=== PATIENT | female | born 1985 | race Caucasian/White ===

== ENCOUNTER 2023-04-02 17:44 | Emergency (ER) | payer SELFPAY ==
[2023-04-02 17:47] VITALS: BP 139/91; PULSE 106; RESP 16; TEMP 37.7; O2SAT 97; BMI 46.7
--- NOTE | 2023-04-02 18:21 | XRR_ITS ---
PROCEDURE INFORMATION: Exam: XR Chest Exam date and time: 04/02/2023 8:46 PM Age: 37 years old Clinical indication: Fever; Additional info: Fever body aches TECHNIQUE: Imaging protocol: Radiologic exam of the chest. Views: 1 view. COMPARISON: CR XR chest 1V [id number] 11/05/2018 10:46 PM FINDINGS: Lungs: Unremarkable. No consolidation. Pleural spaces: Unremarkable. No pleural effusion. No pneumothorax. Heart/Mediastinum: Unremarkable. No cardiomegaly. Bones/joints: Unremarkable. Soft tissues: Examination is limited secondary to body habitus. Organs: Surgical clips in the gallbladder fossa consistent with cholecystectomy. XR/XR chest 1V portable [id number] IMPRESSION: No acute findings.
[2023-04-02 18:46] LABS: Basophils % 0.5 %; Eosinophils % 0.4 %; Hematocrit 43.1 % (36-47); Lymphocytes # 0.8 10^3/uL (0.8-4.8); Lymphocytes % 13.7 %; Mean Corpuscular HGB Conc 32.3 g/dL (30-55); Mean Corpuscular Hemoglobin 27.3 pg (27-33); Mean Corpuscular Volume 84.5 fl (85-98); Mean Platelet Volume 11.2 fL (7.4-10.4); Monocytes # 1.1 10^3/uL (0.2-0.9); Monocytes % 18.8 %; Neutrophils # 3.76 10^3/uL (1.8-7.7); Neutrophils % 66.2 %; Nucleated Red Blood Cells % 0 %; Platelet Count 217 10^3/cmm (157-399); Red Cell Distribution Width 13.5 % (12.1-15.1); White Blood Count 5.68 10^3/uL (3.29-11.43)
[2023-04-02 19:15] LABS: Alanine Aminotransferase 11 U/L (0-33); Albumin Level 3.9 g/dL (3.5-5.2); Alkaline Phosphatase 83 U/L (35-105); Anion Gap 13.1 (5-19); Aspartate Amino Transferase 16 U/L (0-32); Blood Urea Nitrogen 7 mg/dL (6-20); Calcium 8.7 mg/dL (8.5-10.5); Carbon Dioxide 26 mmol/L (22-29); Chloride 103 mmol/L (98-107); Globulin 3.4 g/dL (1.3-4.6); Glomerular Filtration Rate 112.5 mL/min (90-130); Glucose 89 mg/dL (65-115); Osmolality Calculated 283 mOsm/kg (285-295); Potassium 4.1 mmol/L (3.5-5.1); Sodium 138 mmol/L (136-145); Total Bilirubin 0.3 mg/dL (0.15-1.2); Total Protein 7.3 g/dL (6.6-8.7)
[2023-04-02 20:33] VITALS: BP 141/95; PULSE 98; RESP 18; TEMP 36.9; O2SAT 98
[2023-04-02 20:56] LABS: Influenza A by IFA negative (Negative); Influenza B by IFA negative (Negative)
--- NOTE | 2023-04-02 20:57 | W.ED.FEVER ---
HPI - Fever General: Chief Complaint: Fever Stated Complaint: headache, sob , fever Time Seen by Provider: 04/02/23 20:25 Source: patient Mode of arrival: ambulatory Limitations: no limitations History of Present Illness: Patient presents to the emergency department today accompanied by for evaluation and treatment of sudden onset body aches, upset stomach, fever, and headache. Patient seemed to mention some upper respiratory symptoms at discharge but, does not indicate upper respiratory concerns during her physical examination. Patient states she has 1 functioning kidney. She reports that about once a year she gets symptoms like this and is due to urinary tract infection. Patient took Tylenol at approximately 10:00 this morning. Nothing recently. Review of Systems General: Reports: 10 or more systems reviewed and unremarkable except in HPI and below COUNTS INCLUDE 234 BEDS AT THE [facility] ED Female Reproductive History: Date of last menstrual period: 03/12/23 Physical Exam Const: COMMON NORMALS: no acute distress, patient oriented x3 and alert Eye: COMMON NORMALS: Equal, round and reactive pupils present, EOMs intact bilaterally and conjunctivae normal CONJUNCTIVA: Yes conjunctivae normal PUPIL: Yes Equal, round and reactive pupils present Neck/C-Spine: COMMON NORMALS: no JVD Lymph: LYMPHATIC: no lymphadenopathy noted Resp: COMMON NORMALS: normal respiratory effort, No retractions and No use of accessory muscles Cardio: COMMON NORMALS: no JVD and regular rate RATE: regular rate GI: OTHER: Normoactive bowel sounds. Abdomen is soft. Nontender to palpation. : COMMON NORMALS: Yes no CVA tenderness BLADDER/KIDNEY EXAM: Yes no CVA tenderness Back/Pelvis: COMMON NORMALS: no CVA tenderness, thoracic and lumbar spine normal to inspection and thoraco-lumbar ROM normal Extremity: COMMON NORMALS: normal to inspection, full ROM and no pedal edema Neuro: COMMON NORMALS: patient oriented x3 SENSORIUM/ORIENTATION: Yes alert Skin: COMMON NORMALS: no rashes or lesions noted and turgor normal GENERAL SKIN EXAM: no rashes or lesions noted and turgor normal Course Vital Signs: Vital signs: Vital Signs Temperature 98.5 F 04/02/23 20:33 Pulse Rate 90 04/02/23 23:42 Respiratory Rate 18 04/02/23 23:42 Blood Pressure 129/74 04/02/23 23:42 Pulse Oximetry 93 04/02/23 23:42 Oxygen Delivery Me thod Room Air 04/02/23 23:37 MDM - Fever Medical Decision Making Patient's urinalysis revealed no acute concerns today. However, she did test positive for COVID. Given that patient has 1 kidney and has the risk of progressing towards more significant illness, I did put her through the Paxlovid criteria for which she did qualify. I discussed with the patient treatment for her COVID with Paxlovid and she did wish to proceed on with the prescription. We discussed staying hydrated. Explained to her that symptoms may remain for several more days including continued fevers, headache, body aches. She can use [id number] symptomatic treatments. Informational handout regarding active COVID illness provided for her at home. Patient was given strict return precautions for signs of secondary infection or concerns for kidney injury/dehydration. Patient verbalized understanding and agreement to the treatment plan. Differential Diagnosis Likely gastroenteritis; Unlikely acute appendicitis (Influenza, COVID, UTI, pyelonephritis, urosepsis) Lab Data 04/02/23 18:32 04/02/23 18:32 Radiology Impressions Chest X-Ray 04/02/23 18:21 IMPRESSION: No acute findings. Laboratory Results WBC 5.68 10^3/uL (3.29-11.43) 04/02/23 18:32 RBC 5.10 10^6/uL (3.85-5.65) 04/02/23 18:32 Hgb 13.90 g/dL (11.27-16.99) 04/02/23 18:32 Hct 43.1 % (36-47) 04/02/23 18:32 MCV 84.5 fl (85-98) L 04/02/23 18:32 MCH 27.3 pg (27-33) 04/02/23 18:32 MCHC 32.3 g/dL (30-55) 04/02/23 18:32 RDW 13.5 % (12.1-15.1) 04/02/23 18:32 Plt Count 217 10^3/cmm (157-399) 04/02/23 18:32 MPV 11.2 fL (7.4-10.4) H 04/02/23 18:32 Neut % (Auto) 66.2 % 04/02/23 18:32 Lymph % (Auto) 13.7 % 04/02/23 18:32 [place] % (Auto) 18.8 % 04/02/23 18:32 Eos % (Auto) 0.4 % 04/02/23 18:32 Baso % (Auto) 0.5 % 04/02/23 18:32 Neut # (Auto) 3.76 10^3/uL (1.8-7.7) 04/02/23 18:32 Lymph # (Auto) 0.8 10^3/uL (0.8-4.8) 04/02/23 18:32 [place] # (Auto) 1.1 10^3/uL (0.2-0.9) H 04/02/23 18:32 Eos # (Auto) 0.0 10^3/uL (0.0-0.8) 04/02/23 18:32 Baso # (Auto) 0.0 10^3/uL (0.0-0.1) 04/02/23 18:32 Nucleated RBC % (auto) 0 % 04/02/23 18:32 Nucleated RBCs # 0.0 /100WBC 04/02/23 18:32 Sodium 138 mmol/L (136-145) 04/02/23 18:32 Potassium 4.1 mmol/L (3.5-5.1) 04/02/23 18:32 Chloride 103 mmol/L (98-107) 04/02/23 18:32 Carbon Dioxide 26 mmol/L (22-29) 04/02/23 18:32 Anion Gap 13.1 (5-19) 04/02/23 18:32 BUN 7 mg/dL (6-20) 04/02/23 18:32 Creatinine 0.6 mg/dL (0.5-0.9) 04/02/23 18:32 GFR Calculation 112.5 mL/min (90-130) 04/02/23 18:32 Glucose 89 mg/dL (65-115) 04/02/23 18:32 Calculated Osmolality 283 mOsm/kg (285-295) L 04/02/23 18:32 Calcium 8.7 mg/dL (8.5-10.5) 04/02/23 18:32 Total Bilirubin 0.3 mg/dL (0.15-1.2) 04/02/23 18:32 AST 16 U/L (0-32) 04/02/23 18:32 ALT 11 U/L (0-33) 04/02/23 18:32 Alkaline Phosphatase 83 U/L (35-105) 04/02/23 18:32 Total Protein 7.3 g/dL (6.6-8.7) 04/02/23 18:32 Albumin 3.9 g/dL (3.5-5.2) 04/02/23 18:32 Globulin 3.4 g/dL (1.3-4.6) 04/02/23 18:32 HCG, Qual Negative (Negative) 04/02/23 22:49 Urine Color Yellow (Yellow) 04/02/23 22:49 Urine Appearance Clear (CLEAR) 04/02/23 22:49 Urine pH 5 (5-7) 04/02/23 22:49 Ur Specific [place] 1.025 (1.005-1.030) 04/02/23 22:49 Urine Protein Trace (Negative) 04/02/23 22:49 Urine Glucose (UA) Norm (Normal) 04/02/23 22:49 Urine Ketones 2+ (Negative) H 04/02/23 22:49 Urine Blood Neg (Negative) 04/02/23 22:49 Urine Nitrate Negative (Negative) 04/02/23 22:49 Urine Bilirubin Neg (Negative) 04/02/23 22:49 Urine Urobilinogen 1 mg/dL (Negative) H 04/02/23 22:49 Ur Leukocyte Esterase Trace (Negative) H 04/02/23 22:49 Urine RBC 0-4 /hpf (0-2) H 04/02/23 22:49 Urine WBC 0-4 /hpf (0-5) H 04/02/23 22:49 Ur Squamous Epith Cells 10-15 /hpf (0-5) H 04/02/23 22:49 Amorphous Sediment Not Reportable 04/02/23 22:49 Urine Bacteria Trace /hpf (NONE) 04/02/23 22:49 Urine Mucus 2+ /hpf 04/02/23 22:49 Influenza Type A Ag negative (Negative) 04/02/23 20:20 Influenza Type B Ag negative (Negative) 04/02/23 20:20 SARS-CoV-2 Ag (Rapid) positive (Negative) 04/02/23 20:20 Discharge Plan Discharge Patient Disposition: Home Clinical Impression: COVID-19 Condition: Stable Prescriptions: New Paxlovid (EUA) 300 mg (150 mg x 2)-100 mg tablets,dose pack See Rx Instructions .ROUTE .COMPLEX Qty: 30 0RF Rx Instructions: orally per package directions Discharge Orders: Discharge ED (Routine); Ordered 04/02/23 Ordered By: Elizabeth Gates Referrals: [facility] [Other] Discharge Diet: Usual diet Discharge Activity: Increase activity as tolerated Patient Instructions: COVID-19 (Coronavirus Disease 2019) (ED), How to Recover from COVID-19 at Home (ED) Activity Restrictions/Additional Instructions: Lab work is generally unremarkable. Urinalysis reveals no acute concerns for infection at this time. Your influenza swab was negative however, he did test positive for COVID. We are seeing an influx of COVID cases in the region over the last couple of weeks. You do qualify for use of Paxil bid-the antiviral medication for COVID. I have written you a prescription. However, even with antiviral use, you will still experience symptoms of body aches, headache, nausea, nasal congestion, cough, and sore throat. Fevers can last anywhere from 5 to 7 days and, may never fully resolve during the illness. Typically, we expect to see general improvement of fever with use of antipyretic medication but, full resolution may not be achieved until end of illness. Will be very important and stable hydrated and rest. Avoid direct contact with others in close settings for the next 5 days. You can still use [id number] cough and cold medication as needed. If you develop concerns for dehydration due to vomiting, diarrhea, or experience fevers that are not not responding at all to any type of antipyretic medication or, should you have any signs of new onset respiratory distress you should be seen and reevaluated. Coding Level of Care Code ED Saw Operator for Yolie Stuart
[2023-04-02] MEDS: ondansetron 2 mg/ML SDV 2 mL 4 MG IVP (21:32)
[2023-04-02] MEDS: orphenadrine 30 mg/mL Inj 2 mL 60 MG IVP (21:32)
[2023-04-02] MEDS: sodium chloride 0.9% 1,000 ML 999 ML IV (21:56)
[2023-04-02 23:16] LABS: HCG Qualitative Urine. Negative (Negative)
[2023-04-02 23:22] LABS: Add Urine Culture? No; Add Urine Microscopic? YES; Bacteria Urine TRACE /hpf; Bilirubin Urine Neg (Negative); Blood Urine Neg (Negative); Glucose Urine UA Norm (Normal); Ketones Urine 2+ (Negative); Leukocyte Esterase Urine Trace (Negative); Mucus Urine 2+ /hpf; Nitrate Urine Negative (Negative); Protein Urine Trace (Negative); RBC Urine 0-4 /hpf (0-2); Specific Gravity, Urine 1.025 (1.005-1.030); Urine Appearance Clear (CLEAR); Urine Color Yellow (Yellow); Urobilinogen Urine 1 mg/dL (Negative); WBC Urine 0-4 /hpf (0-5); pH Urine 5 (5-7)
[2023-04-02 23:37] VITALS: BP 129/74; PULSE 94; RESP 18; O2SAT 93
[2023-04-02 23:42] VITALS: BP 129/74; PULSE 90; RESP 18; O2SAT 93
[2023-04-03 12:49] LABS: SARS Covid-2 Antigen positive (Negative)
== END 2023-04-02 23:46 | disposition home or self-care (01) ==
PROVIDERS: Emergency Medicine; Emergency Provider Physician Assistant
DX: U07.1 COVID-19 (principal)
CPT/HCPCS: 36415; 71045; 80053; 81001; 81025; 85025; 87426; 87804; 96361; 96374; 96375; 99284; J2360; J2405; J7030

== ENCOUNTER → 2023-04-06 09:24 | Outpatient (BNVA) | payer OTHER, SELFPAY | PROVIDERS: Visit Provider Podiatrist Foot & Ankle Surgery | DX: M79.671 Pain in right foot (principal); M72.2 Plantar fascial fibromatosis | CPT/HCPCS: 73630 ==

== ENCOUNTER 2023-04-06 15:13 | Outpatient (CLI) | payer OTHER, SELFPAY | END 2023-04-06 15:14 | disposition home or self-care (01) | LOC: SPT 15:14 | PROVIDERS: Visit Provider Podiatrist Foot & Ankle Surgery | DX: Z46.89 Encounter for fitting and adjustment of other specified devices (principal); M72.2 Plantar fascial fibromatosis | CPT/HCPCS: 97760; L4397 ==

== ENCOUNTER → 2023-08-23 09:00 | Outpatient (BNVA) | payer OTHER, SELFPAY | PROVIDERS: Visit Provider Obstetrics & Gynecology | DX: Z01.419 Encounter for gynecological examination (general) (routine) without abnormal findings (principal); Z00.00 Encounter for general adult medical examination without abnormal findings | CPT/HCPCS: 80053; 84443; 85025; 87624 ==

== ENCOUNTER → 2023-09-07 09:44 | Outpatient (BNVA) | payer OTHER, SELFPAY | PROVIDERS: Visit Provider Obstetrics & Gynecology | DX: N93.9 Abnormal uterine and vaginal bleeding, unspecified (principal); D25.9 Leiomyoma of uterus, unspecified; N83.201 Unspecified ovarian cyst, right side | CPT/HCPCS: 76830 ==

== ENCOUNTER 2023-11-09 09:15 | Outpatient (CLI) | payer OTHER, SELFPAY | END 2023-11-09 09:16 | disposition home or self-care (01) | LOC: SPT 09:16 | PROVIDERS: Visit Provider Podiatrist Foot & Ankle Surgery | DX: Z46.89 Encounter for fitting and adjustment of other specified devices (principal); M79.671 Pain in right foot | CPT/HCPCS: 97760; L4361 ==

== ENCOUNTER 2023-12-22 08:06 | Day surgery (SDC) | payer MEDICAID, SELFPAY ==
[2023-12-22] VITALS (9 sets, daily range): BP systolic 117–145; BP diastolic 73–93; PULSE 77–89; RESP 14–22; TEMP 36.1–36.4; O2SAT 94–100; BMI 46.7
--- NOTE | 2023-12-22 01:35 | W.PM.OPSFHP ---
Same Day Surgery H&P Indication for Procedure/HPI DATE OF PROCEDURE: December 22, 2023 CHIEF COMPLAINT/INDICATIONFOR SURGICAL PROCEDURE: abnormal uterine bleeding PREOP DIAGNOSIS: abnormal uterine bleeding PLANNED PROCEDURE: Operation Date: 12/22/23 10:10 Proposed Procedures p Hysteroscopy Hysteroscopy w/ Endometrial Sampling 71777, N93.9(Not Applicable) - Marlo Saleem MD s Poylpectomy/ possible endometrial polypectomy(Not Applicable) - Marlo Saleem MD 38 y.o. with irregular, heavy, and prolonged periods now scheduled for hysteroscopy, endometrial sampling, possible endometrial polypectomy Medications/Allergies* Home Medications Medication Instructions Recorded Confirmed Type No Known Home Medications 12/21/23 12/21/23 History Allergies/Adverse Reactions Allergy/AdvReac Type Severity Reaction Status Date / Time acetaminophen [From Vicodin] Allergy hives Verified 11/09/23 08:30 aspirin Allergy hives Verified 11/09/23 08:30 ceftriaxone [From Rocephin] Allergy hives Verified 11/09/23 08:30 erythromycin base Allergy hives Verified 11/09/23 08:30 hydrocodone [From Vicodin] Allergy hives Verified 11/09/23 08:30 Penicillins Allergy hives Verified 11/09/23 08:30 Pertinent History/Comorbid Conditions* Family History (Updated 08/23/23 @ 07:54 by Laurie Marion LPN) Denies family history of Colon cancer Ovarian cancer Diabetes Heart disease Hypercholesteremia Breast cancer Hypertension Uterine cancer Stroke Pertinent Exam Findings alert, oriented x 3, clear to auscultation bilaterally and regular rate & rhythm Pertinent Data Pap 08-23-23 NILM, negative HPV Pelvic sono 09-07-23 2.7 cm fibroid Normal uterus, ovaries Recommendations Surgery/Procedure today Coding Level of Care Code Acute Code for Chg Fwd Time Spent (min) 20
--- NOTE | 2023-12-22 09:05 | ANES.PREANE2 ---
Pre-Anesthetic Assessment Height/Weight: Height 1.63 m Weight 123.377 kg Temp Pulse Resp BP Pulse Ox O2 Del Method 97.5 F L 77 18 140/81 98 Room Air 12/22/23 08:44 12/22/23 08:44 12/22/23 08:44 12/22/23 08:44 12/22/23 08:44 12/22/23 08:45 Preop Diagnosis: abnormal uterine bleeding Operation Date: 12/22/23 10:10 Proposed Procedures p Hysteroscopy Hysteroscopy w/ Endometrial Sampling 67820, N93.9(Not Applicable) - Marlo Saleem MD s Poylpectomy/ possible endometrial polypectomy(Not Applicable) - Marlo Saleem MD Familial anesthetic complications: none Was Beta Lesly taken within 24 hours: N/A Was Clonidine taken within 24 hours: N/A Last intake: Intake Last Liquid Date 12/21/23 Last Liquid Time 23:55 Last Solid Date 12/21/23 Last Solid Time 21:30 Social No alcohol and No tobacco Exam alert, oriented x 3, clear to auscultation bilaterally and regular rate & rhythm Airway Submandibular: within normal limits Cervical ROM: within normal limits Mallampati: Class II Dentition: full CV/HEM Anemia Metabolic Morbid Obesity Anesthetic Plan ASA status: 2 Anesthesia: General Medications/Allergies Home Medications Medication Instructions Recorded Confirmed Last Taken Type No Known Home Medications 12/21/23 12/21/23 Unknown History Allergies Allergy/AdvReac Type Severity Reaction Status Date / Time acetaminophen [From Vicodin] Allergy hives Verified 11/09/23 08:30 aspirin Allergy hives Verified 11/09/23 08:30 ceftriaxone [From Rocephin] Allergy hives Verified 11/09/23 08:30 erythromycin base Allergy hives Verified 11/09/23 08:30 hydrocodone [From Vicodin] Allergy hives Verified 11/09/23 08:30 Penicillins Allergy hives Verified 11/09/23 08:30 PFSH Anesthesia Family History Denies family history of Colon cancer Ovarian cancer Diabetes Heart disease Hypercholesteremia Breast cancer Hypertension Uterine cancer Stroke Female Reproductive History Date of last menstrual period: 12/16/23 Data Anesthesia Cardiac Studies: No Data to Display
--- NOTE | 2023-12-22 09:43 | W.PM.OPSUD ---
Surgery/Procedure H&P Update DATE OF PROCEDURE: December 22, 2023 DATE H&P PERFORMED: 12/22/23 H&P UPDATE INFORMATION: I have reviewed H&P completed within last 30 days, I have examined patient prior to procedure and No changes to prior documentation PREOP DIAGNOSIS: abnormal uterine bleeding PLANNED PROCEDURE: Operation Date: 12/22/23 10:10 Proposed Procedures p Hysteroscopy Hysteroscopy w/ Endometrial Sampling 91710, N93.9(Not Applicable) - Marlo Saleem MD s Poylpectomy/ possible endometrial polypectomy(Not Applicable) - Marlo Saleem MD
[2023-12-22] MEDS: sodium chloride 0.9% 1,000 ML 100 ML IV (09:50)
--- NOTE | 2023-12-22 11:05 | PM.OP ---
Operative Report Date of procedure: December 22, 2023 Pre-op diagnosis: abnormal uterine bleeding Post-op diagnosis: same Post-op findings: normal endometrial cavity No polyps / fibroids Minimal endometrial tissue Procedure done: hysteroscopy Curettage of uterus Implants: none Specimens removed/disposition: endometrial curettings Surgeon: Marlo Saleem MD Anesthesia: MAC Estimated blood loss (mL): 0 Complications: none Condition: stable Disposition: PACU Brief History: 38 y.o. with abnormal uterine bleeding Procedure: Informed consent signed. Patient was taken to the operating room. Anesthesia was induced. Patient was placed in dorsolithotomy position, prepped and draped for hysteroscopy. A bivalve speculum was placed in the vagina. The anterior lip of the cervix was grasped with a sharp-toothed tenaculum. The cervix was serially dilated with Hegar dilators. . A hysteroscope was placed into the endometrial cavity. The endometrial cavity was seen to be normal. There were no polyps or fibroids. There was a minimal amount of endometrial tissue. The hysteroscope was then removed. Endometrial curettage was done with a sharp curette. Endometrial tissue was sent to pathology. The sharp-toothed tenaculum was removed. There was no bleeding from the endometrial cavity or cervix. The patient was then placed supine and awakened and taken to the PACU. Postop condition: stable EBL: none Sponge and instruments counts were normal x 2 Complications: none
[2023-12-22 11:14] LABS: OR HCG Qualitative Urine Negative (Negative)
--- NOTE | 2023-12-22 13:55 | ANE.PACU2 ---
Inpatient post-anesthesia follow up: Airway intact: Yes Vital signs: Temperature 97.6 F Pulse Rate 89 Respiratory Rate 16 Blood Pressure 120/79 Pulse Oximetry 95 Oxygen Delivery Me thod Room Air Oxygen Flow Rate 4 Fraction of Inspir ed Oxygen Hydration adequate: Yes Nausea and vomiting: No Pain level: 2 Mental status: Baseline
== END 2023-12-22 12:15 | disposition home or self-care (01) ==
PROVIDERS: Visit Provider Obstetrics & Gynecology
PROC: 0UJD8ZZ Inspection of Uterus and Cervix, Via Natural or Artificial Opening Endoscopic (ICD-10-PCS; CPT 58555; principal; 2023-12-22 10:00)
PROC: (CPT 58558; 2023-12-22 10:00)
DX: N93.9 Abnormal uterine and vaginal bleeding, unspecified (principal)
CPT/HCPCS: 58558; 81025; 88305; J1100; J1200; J2250; J2405; J2704; J3010; J7030

== ENCOUNTER 2024-01-13 06:59 | Emergency (ER) | payer MEDICAID, SELFPAY ==
[2024-01-13 07:08] VITALS: BP 144/89; PULSE 87; RESP 16; TEMP 36.9; O2SAT 97
--- NOTE | 2024-01-13 07:14 | ED_ITS ---
HPI - General Adult General: Chief complaint: Ear Stated complaint: left ear pain Time Seen by Provider: 01/13/24 07:08 Source: patient Mode of arrival: ambulatory History of Present Illness: 38-year-old female presents emergency ro om planing of sore throat with pain radiating into her ear. She has not had any fever sweats or chills no rash symptoms began overnight. Denies dysuria urgency or shortness of breath. No trauma or injury. Onset (ago): minute(s) Pain Consistency: constant Relieving factors: none Exacerbating factors: none Associated symptoms: Deny chest pain, confusion, cough, diaphoresis, decreased appetite, dyspnea, fevers/chills, headache(s), malaise, nausea, rash, palpitations, seizures, short of breath, syncope, vomiting or weakness Review of Systems Const: Reports: fever(s); Denies: chills, fatigue, malaise or diaphoresis ENMT: Reports: throat pain and ear or mastoid pain; Denies: ear discharge, nasal discharge or nasal congestion Card: Denies: chest pain, palpitations or syncope Resp: Denies: dyspnea GI: Denies: abdominal pain, nausea or vomiting : Denies: dysuria, urinary frequency or urinary urgency Musc: Denies: neck pain or back pain Skin/Breast: Denies: rash Neuro: Denies: headache(s) or confusion PFSH ED PFSH: Family History Denies family history of Colon cancer Ovarian cancer Diabetes Heart disease Hypercholesteremia Breast cancer Hypertension Uterine cancer Stroke Physical Exam Const: GENERAL APPEARANCE: cooperative and comfortable ORIENTATION/CONSCIOUSNESS: Yes awake, Yes oriented to person, Yes oriented to place and Yes oriented to time HENMT: COMMON NORMALS: normocephalic, atraumatic and hearing grossly normal bilaterally HEAD & SCALP: normocephalic and atraumatic THROAT: posterior oropharynx abnormal edema, erythema and exudates OTHER: No gum inflammation or redness no swelling or apparent abscesses. Bilaterally there is excessive cerumen within the external auditory canal the external auditory canal itself does not show any evidence of redness or erythema or drainage only small portions of the TM can be visualized they appear to be normal Neck/C-Spine: OTHER: Tender submandibular lymphadenopathy Resp: COMMON NORMALS: normal respiratory effort, No retractions, No use of accessory muscles and clear to auscultation bilaterally AUSCULTATION: clear to auscultation bilaterally Cardio: COMMON NORMALS: regular rate, regular rhythm and No murmurs present (Cardio) RATE: regular rate RHYTHM: regular rhythm GI: COMMON NORMALS: Soft to palpation and No hepatosplenomegaly present AUSCULTATION: Yes normoactive bowel sounds PALPATION: Yes Soft to palpation, No Tenderness to palpation present (GI), No Guarding due to palpation present (G I) and Yes No hepatosplenomegaly present Extremity: COMMON NORMALS: normal to inspection, capillary refill normal, no clubbing, cyanosis or edema, no calf tenderness and no pedal edema Neuro: SENSORIUM/ORIENTATION: Yes oriented to person, Yes oriented to place and Yes oriented to time Skin: COMMON NORMALS: no rashes or lesions noted GENERAL SKIN EXAM: no rashes or lesions noted Course Vital Signs: Vital signs: Vital Signs Temperature 98.5 F 01/13/24 07:08 Pulse Rate 87 01/13/24 07:24 Respiratory Rate 16 01/13/24 07:24 Blood Pressure 144/89 01/13/24 07:24 Pulse Oximetry 98 01/13/24 07:24 MDM - General Adult Medical Decision Making Patient has multiple antibiotic allergies. The only option to cover strep at this point is clindamycin. She is allergic to cephalosporins penicillins and macrolides. Suspect her ear pain is referred from the throat. Treat with clindamycin. Return to the emergency room or primary care if not improving or changes. Medical Records I reviewed the patient's medical records. Lab Data I reviewed the patient's lab results. No radiology studies performed this visit Discharge Plan Discharge Patient Disposition: Home Clinical Impression: Pharyngitis Condition: Stable Prescriptions: New clindamycin HCl 300 mg capsule 300 mg PO TID 10 Days Qty: 30 0RF Discharge Orders: Discharge ED (Routine); Ordered 01/13/24 Ordered By: Tony Shea Discharge Diet: Usual diet Discharge Activity: Increase activity as tolerated Patient Instructions: Opioid Safety, Pain Management Activity Restrictions/Additional Instructions: Thank you for choosing [facility] for your healthcare needs today. It is very important that you follow up as instructed or that you return to the Emergency Department should you have concerns or if your condition changes or worsens in any way. You were seen today for complaint of ear pain and sore throat. No acute infection in the extraocular canal of the ear is difficult to visualize your middle ear because of the wax in the ear. On exam your throat appears red and inflamed with some exudate. Due to your multiple allergies there is limited options for treatment and the most appropriate medication is clindamycin 300 mg 1 tablet 3 times a day for 10 days. Coding Level of Care Code ED Oil Well Fishing Tool Technician for Yolie Stuart
[2024-01-13 07:24] VITALS: BP 144/89; PULSE 87; RESP 16; O2SAT 98
== END 2024-01-13 07:25 | disposition home or self-care (01) ==
PROVIDERS: Emergency Provider Family Medicine
DX: J02.9 Acute pharyngitis, unspecified (principal)
CPT/HCPCS: 99283

== ENCOUNTER → 2024-08-28 14:51 | Outpatient (BNVA) | payer MEDICAID, SELFPAY | PROVIDERS: Visit Provider Podiatrist Foot & Ankle Surgery | DX: M72.2 Plantar fascial fibromatosis; M62.461 Contracture of muscle, right lower leg | CPT/HCPCS: 73630 ==

== ENCOUNTER 2024-11-05 10:32 | Outpatient (CLI) | payer MEDICAID, SELFPAY ==
--- NOTE | 2024-11-05 11:00 | MR_ITS ---
WS: [id number] EXAMINATION: MR foot RT wo con* [id number] ORDER DATE: 11/05/2024 11:00 AM COMPARISON: None. HISTORY: surgical planning, eval plantar fascia CONTRAST: None. TECHNIQUE: Sagittal T1, sagittal STIR, coronal PD, coronal T2, axial T1, axial T2, and axial PD imaging with fat saturation technique. FINDINGS: Plantar and Achilles calcaneal spurring. Thickening of the plantar fascia worse involving the medial insertional measuring approximately 7 mm with associated surrounding soft tissue edema compatible with plantar fasciitis. Distal Achilles appears intact. Small amount of tenosynovitis along the peroneal tendon sheath. Tenosynovitis involving the flexor compartment tendons. Normal extensor compartment tendons. Medial and lateral malleolus appear intact. Normal talar dome. Small ganglion cysts along the third TMT joint. MR/MR foot RT wo con* [id number] IMPRESSION: 1. Thickening of the plantar fascia worse involving the medial insertion bryce tible with planter fasciitis described above. Associated soft tissue edema.
== END 2024-11-05 10:33 | disposition home or self-care (01) ==
LOC: RAD 10:33
PROVIDERS: Visit Provider Podiatrist Foot & Ankle Surgery
DX: M62.461 Contracture of muscle, right lower leg (principal); M72.2 Plantar fascial fibromatosis; R93.6 Abnormal findings on diagnostic imaging of limbs; M77.31 Calcaneal spur, right foot; M65.871 Other synovitis and tenosynovitis, right ankle and foot; M67.471 Ganglion, right ankle and foot
CPT/HCPCS: 73718

== ENCOUNTER 2024-11-30 10:31 | Day surgery (SDC) | payer MEDICAID, SELFPAY ==
[2024-11-30] VITALS (11 sets, daily range): BP systolic 87–180; BP diastolic 73–102; PULSE 71–94; RESP 11–22; TEMP 36.1–36.2; O2SAT 92–99; BMI 46.3
[2024-11-30] MEDS: gabapentin 300 mg Capsule PO (11:48)
[2024-11-30] MEDS: sodium chloride 0.9% 1,000 ML 30 ML IV (11:48)
--- NOTE | 2024-11-30 12:02 | ANES.PREANE2 ---
Pre-Anesthetic Assessment Height/Weight: Height 1.63 m Weight 122.47 kg Temp Pulse Resp BP Pulse Ox O2 Del Method 97.0 F L 73 17 139/95 96 Room Air 11/30/24 11:44 11/30/24 11:44 11/30/24 11:44 11/30/24 11:44 11/30/24 11:44 11/30/24 11:44 Preop Diagnosis: Plantar fasciitis and equinus right lower extremity. Operation Date: 11/30/24 12:35 Proposed Procedures p Gastrocnemius Recession(Right) - Brice Weaver DPM s Plantar Fascia Release(Right) - Brice Weaver DPM Familial anesthetic complications: none Was Beta Lesly taken within 24 hours: N/A Was Clonidine taken within 24 hours: N/A Last intake: Intake Last Liquid Date 11/29/24 Last Liquid Time 21:00 Last Solid Date 11/29/24 Last Solid Time 21:00 Social No alcohol and No tobacco Exam alert, oriented x 3, clear to auscultation bilaterally and regular rate & rhythm Airway Submandibular: within normal limits Cervical ROM: within normal limits Mallampati: Class IV Dentition: full Pulmonary None reported CV/HEM None reported BP 139/95 denies HTN Chronic Renal Insufficiency Patient has 1 non-functioning kidney. BUN 9, Creatinine 0.5 GFR 139 Hepatic None reported GI None reported Metabolic Morbid Obesity [facility] None reported Neuropsych None reported Anesthetic Plan ASA status: 3 Anesthesia: General Medications/Allergies Home Medications ?Medication ?Instructions ?Recorded ?Confirmed ?Last Taken ?Type No Known Home Medications 08/28/24 11/29/24 Unknown History Allergies Allergy/AdvReac Type Severity Reaction Status Date / Time acetaminophen (From Vicodin) Allergy hives Verified 11/06/24 06:53 aspirin Allergy hives Verified 11/06/24 06:53 ceftriaxone (From Rocephin) Allergy hives Verified 11/06/24 06:53 erythromycin base Allergy hives Verified 11/06/24 06:53 hydrocodone (From Vicodin) Allergy hives Verified 11/06/24 06:53 Penicillins Allergy hives Verified 11/06/24 06:53 Current Medications Generic Name Dose Route Start Last Admin Trade Name Freq PRN Reason Stop Dose Admin Sodium Chloride 1,000 mls @ 30 mls/hr 11/30/24 11:30 11/30/24 11:48 Sodium Chloride 0.9% IV 12/01/24 11:29 30 mls/hr .Q24H TAWANDA Administration PFSH Anesthesia Family History Denies family history of Colon cancer Ovarian cancer Diabetes Heart disease Hypercholesteremia Breast cancer Hypertension Uterine cancer Stroke Social History Smoking and tobacco/nicotine status: never used tobacco/nicotine Data Anesthesia Cardiac Studies: No Data to Display
--- NOTE | 2024-11-30 13:26 | W.PM.OPSUD ---
Surgery/Procedure H&P Update DATE OF PROCEDURE: November 30, 2024 DATE H&P PERFORMED: 11/06/24 H&P UPDATE INFORMATION: I have reviewed H&P completed within last 30 days, I have examined patient prior to procedure, No changes to prior documentation and Risks and benefits of the procedure reviewed PREOP DIAGNOSIS: Plantar fasciitis and equinus right lower extremity. PLANNED PROCEDURE: Operation Date: 11/30/24 12:35 Proposed Procedures p Gastrocnemius Recession(Right) - Brice Weaver DPM s Plantar Fascia Release(Right) - Brice Weaver DPM
[2024-11-30] MEDS: clindamycin 600 MG/50 ML PREMIX 100 MG IV (13:36)
[2024-11-30] MEDS: BUPivacaine liposome 13.3 mg/mL SDV 20 mL 266 MG (13:58)
[2024-11-30] MEDS: BUPivacaine 0.5% INJ 30 mL (13:59)
--- NOTE | 2024-11-30 14:48 | W.PM.BPON ---
Date of Procedure: 10/21/23 Surgeon: Brice Weaver DPM [employer] Operator(s): Danita Procedure(s) performed: Right gastrocnemius recession and right plantar fascial release. Findings of the procedure(s): Equinus preoperatively, plantar fasciitis intraoperatively. Estimated blood loss: 1 mL Specimen(s) removed: No specimens Post-operative diagnosis: Right plantar fasciitis, right gastrocnemius equinus
--- NOTE | 2024-11-30 14:49 | P.OP_ITS ---
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 CPT code 32612 2) right plantar fascial release. CPT code 20873 Implants: 4 nylon Specimens removed/disposition: None Pathology: None Surgeon: Brice Weaver DPM Customer Supply Chain Analyst: Danita Estimated blood loss: 1 mL 45 IV fluids: See intraoperative documentation Urine output: None Complications: No complications Brief History: - MRI: Reveals significant thickening of the right plantar fascia, measured at 7 millimeters, indicating chronic inflammation and degenerative changes. 39-year-old female with history of chronic plantar fasciitis presenting with persistent pain in the right foot. Continued symptoms despite conservative management and MRI showing significant thickening of the plantar fascia suggest surgery as a viable consideration. The patient's chronic plantar fasciitis of the right foot has been persistent and refractory to conservative management over the past three years, as evidenced by an MRI indicating significant thickening of the plantar fascia. Given the chronicity and severity, surgical intervention is now considered appropriate. Potential benefits include reduction of pain and improvement in function, while considered risks such as recurrence have been explained. An endoscopic approach is preferred for quicker recovery. Goals of treatment include alleviating pain, preventing further thickening, and enhancing the patient?s quality of life. The decision to perform surgery involves both plantar fascial and gastrocnemius releases to comprehensively address the anatomical and mechanical contributions to this chronic condition. I reviewed at length with the patient, the risks, potential complications, benefits, alternatives, expectations, and typical outcomes associated with the surgery. The risks and potential complications were explained in detail, including but not limited to infection, wound dehiscence or soft tissue complications, bleeding and hematoma, chronic edema, neuritis or nerve damage producing numbness or chronic pain, CRPS, failure to relieve pain or worsening pain, thick / painful / unsightly scar, limited motion / stiffness, malposition, delayed union, malunion, or nonunion, fracture, reaction to implants, anesthetic complications, venous thromboembolism, and deformity recurrence. I discussed the notion of no regrets with the patient as it pertains to complications and outcomes. The patient seemed to understand the nature of the proposed care and required convalescence. They asked appropriate questions, answered to their satisfaction. They are aware no guarantees can be made as to a satisfactory outcome and they understand there may be other possible unforeseen complications or outcomes not listed here that will be treated accordingly if they arise. There were no written or implied guarantees given to the patient. They gave informed consent to proceed. Procedure: Under mild sedation the patient was brought to the operating room and remained on the gurney in supine position. A timeout was performed. Anesthesia was then administered by the anesthesia service. Local esthesia injected by myself consisting of20 cc of 0.5% Marcaine plain at planned operative site of gastrocnemius recession and plantar fascia with an additional 20 cc of Exparel infiltrated subcutaneously in a grid like fashion at operative sites per manufacture recommendation and technique. Well-padded pneumatic tourniquet applied to the right high calf. The right lower extremity was scrubbed, prepped and draped utilizing normal aseptic technique. Right lower extremity was then exanguinated with an Esmarch bandage and tourniquet inflated to 250 mmHg. Attention was directed to the myotendinous juncture of the gastrocnemius proximally 2 cm inferior to this a 1 cm incision was made medially with blunt dissection down to crural fascia which was incised and a dilator was inserted from medial to lateral when tenting of the lateral skin was appreciated a 1 cm incision was made and the cannula was inserted from medial to lateral at the level of the gastrocnemius aponeurosis, was able to visualize nerve posteriorly and this was protected with a cannula, under direct visualization the gastrocnemius aponeurosis was incised and released with Arthrex endoscopic set and Endo blade with direct visitation this was released from lateral to medial was able to visualize a complete release without damage to adjacent soft tissue structures with Janelle scope. The incision was irrigated with saline solution and closed with 4-0 nylon. Attention was then directed to the right plantar rear foot where following a skin tension line a transverse incision was made approximately 1.5 cm in length directly plantar to the plantar fascia with dissection carried down through subcutaneous tissue to the layer of the plantar fascia, all bleeders were ligated and cauterized as necessary. Under direct visualization the right plantar fascia was sharply released from lateral to medial incising and releasing the medial two thirds of the plantar fascia with a #15 blade which was noted to be excessively thickened and fibrosed. The incision was irrigated with copious amounts of sterile saline solution and closure obtained with 4-0 nylon. Incisions were dressed with Xeroform, 4 x 4 gauze, Kerlix and Kt wrap followed by application of a cam boot to the right lower extremity. Tourniquet was deflated and a prompt hyperemic response is noted to the distal digits of the right foot. Patient tolerated the procedure and anesthesia well and was transferred to the PACU with vital signs stable and vascular status intact. Following a period of postoperative monitoring she will be discharged home without home care instructions and scheduled follow-up.
--- NOTE | 2024-11-30 15:20 | ANE.PACU2 ---
Inpatient post-anesthesia follow up: Airway intact: Yes Vital signs: Temperature 97.0 F Pulse Rate 94 Respiratory Rate 18 Blood Pressure 180/102 Pulse Oximetry 96 Oxygen Delivery Me thod Room Air Oxygen Flow Rate 8 Fraction of Inspir ed Oxygen Hydration adequate: Yes Nausea and vomiting: No Pain level: 1 Mental status: Baseline
[2024-11-30] MEDS: oxyCODONE 5 mg IR Tab/Cap 10 MG PO (15:41)
--- NOTE | 2024-11-30 16:09 | SUR.PHASEII ---
Patient rates pain at 10 but says she wants to go home because she is hungry
[2024-11-30] MEDS: acetaminophen 500 mg Tablet 1000 MG PO (16:17)
== END 2024-11-30 16:30 | disposition home or self-care (01) ==
PROVIDERS: PCP Podiatrist Foot & Ankle Surgery; Visit Provider Podiatrist Foot & Ankle Surgery
PROC: (CPT 27687; principal; 2024-11-30 12:25)
PROC: (CPT 28250; 2024-11-30 12:25)
DX: M72.2 Plantar fascial fibromatosis (principal); M62.461 Contracture of muscle, right lower leg; E66.01 Morbid (severe) obesity due to excess calories; Z68.42 Body mass index [BMI] 45.0-49.9, adult; N28.9 Disorder of kidney and ureter, unspecified; Z88.0 Allergy status to penicillin; Z88.5 Allergy status to narcotic agent; Z88.8 Allergy status to other drugs, medicaments and biological substances
CPT/HCPCS: 27687; 28008; J0666; J1100; J2250; J2405; J2704; J3010; J3490; J7030; J9999